=== PATIENT | female | born 1935 | race Caucasian/White ===

== ENCOUNTER 2020-03-12 08:09 | Inpatient (IN) | payer MEDICARE ==
[~2020-03-12] VITALS: Ht 160 cm; Wt 57.0 kg
[2020-03-12 10:09] LABS: BASOPHILS ABSOLUTE AUTO 0.03 K/mm3 (0.00-0.23); BASOPHILS PERCENT AUTO 0 % (0-2); EOSINOPHILS ABSOLUTE AUTO 0.04 K/mm3 (0.00-0.68); EOSINOPHILS PERCENT AUTO 0 % (0-6); Hematocrit 46.4 % (33.0-51.0); Hemoglobin 15.4 g/dL (11.5-16.0); IMMATURE GRAN ABSOLUTE AUTO 0.03 K/mm3 (0.00-0.10); IMMATURE GRAN PERCENT AUTO 0 % (0-1); LYMPHOCYTES ABSOLUTE AUTO 1.05 K/mm3 (0.84-5.20); LYMPHOCYTES PERCENT AUTO 11 % (21-46); MONOCYTES ABSOLUTE AUTO 0.56 K/mm3 (0.16-1.47); MONOCYTES PERCENT AUTO 6 % (4-13); Mean Corpuscular HGB 30.3 pg (26.0-34.0); Mean Corpuscular HGB Conc 33.2 g/dL (31.5-36.5); Mean Corpuscular Volume 91 fL (80-100); Mean Platelet Volume 10.3 fL (9.1-12.4); NEUTROPHILS ABSOLUTE AUTO 8.04 K/mm3 (1.96-9.15); NEUTROPHILS PERCENT AUTO 83 % (41-73); Platelet Count 225 K/mm3 (150-400); RDW Coefficient Variation 14.1 % (11.7-14.2); RDW Standard Deviation 47.3 fL (35.1-46.3); Red Blood Cell Count 5.09 M/mm3 (3.80-5.20); White Blood Cell Count 9.75 K/mm3 (4.00-11.30)
[2020-03-12 10:26] LABS: Alanine Aminotransfer (ALT/SGP 48 U/L (12-78); Albumin, Blood 3.2 g/dL (3.4-5.0); Albumin/Globulin Ratio 0.7 (0.8-1.8); Alk Phos 95 U/L (50-136); Anion Gap 7 mmol/L (6-16); Aspartate Aminotrans (AST/SGOT 90 U/L (12-37); Bilirubin, Total 0.9 mg/dL (0.1-1.0); Blood Urea Nitrogen 26 mg/dL (8-24); Bun/Creatinine Ratio 42.1 (12.0-20.0); CO2, Blood 25 mmol/L (21-32); Calcium, Blood 9.8 mg/dL (8.5-10.1); Chloride, Blood 112 mmol/L (98-108); Creatinine, Blood 0.62 mg/dL (0.40-1.00); Globulin, Blood 4.8 g/dL (2.2-4.0); Glomerular Filtration Rate >60 (60-); Glucose, Blood 119 mg/dL (70-99); Potassium, Blood 3.6 mmol/L (3.5-5.5); Sodium, Blood 144 mmol/L (136-145)
[2020-03-12 10:35] LABS: CPK Creatine Kinase 1932 U/L (26-193)
[2020-03-12 11:00] LABS: Creatine Kinase MB 25.4 ng/mL (0.0-3.6); Creatine Kinase MB Index 1.3 (0.0-4.0)
[2020-03-12 13:01] LABS: International Normalized Ratio 1.04; Prothrombin Time Results 11.1 Sec (9.7-11.5)
--- NOTE | 2020-03-12 15:33 | NUR ---
APS NOTIFICATION PT ARRIVED TO UNIT AT APROX 1345 FROM ER FOR A BROKEN FEMUR FOLLOWING A FALL AT HOME. PT APPEARS DIRTY/DISHEVELED, SMELLING STRONLY OF URINE AND BODY ODOR. IT WAS REPORTED TO THIS RN THAT PT FELL AT HOME TWO DAYS AGO AND LAID THERE PT'S WAS UNABLE TO LIFT HER OFF OF THE FLOOR. THIS RN NOTIFIED APS AT APROX 1515-SPOKE WITH [employer] SCREENER.
--- NOTE | 2020-03-12 19:37 | NUR ---
REPORT BEEN GIVEN TO HS RN. DR KEE HERE. SHOWN PT'S WOUNDS.
--- NOTE | 2020-03-13 04:39 | NUR ---
SHIFT SUMMARY: PT PLEASANT AND COOPERATIVE WITH CARE. PT NOTED TO BE SLIGHTLY CONFUSED DURING NIGHT- ASKING WHERE SHE IS SUPPOSED TO SLEEP. POINTING TOWARDS THE DOOR ASKING IF THERE IS A [place]. PT ABLE TO REORIENT EASILY. REPORTS DISCOMFORT BUT REFUSED TO TAKE ANY MEDICATION. WOUNDS ON R HIP AND LEFT ANKLE CULTURED AND SENT TO LAB. PT REPORTS HAVING THE LEFT ANKLE WOUND FOR A LONG TIME. HYDROGEL APPLIED AND SITE WRAPPED IN KERLEX+HAROON WRAP. SKIN TEAR/PRESSURE SORES TO RIGHT HIP COVERED WITH MEPILEX DRESSING. PT REPORTS THE WOUNDS TO RT HIP ARE NEW FROM LAYING ON RT SIDE FOR 2 DAYS D/T RECENT FALL AND FEMUR FX. SKIN ABNORMALITIES NOTED TO LEFT UPPER ARM UPPER BACK AND NOSE. 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 WESTON INTACT AND DRAINING SMALL AMOUNT OF URINE. 300CC OF DARK URINE EMPTIED. PLAN TO TREAT VARIOUS WOUNDS WITH IV ABX THEN POSS MARGAUX HIP.
[2020-03-13 05:31] LABS: BASOPHILS ABSOLUTE AUTO 0.02 K/mm3 (0.00-0.23); BASOPHILS PERCENT AUTO 0 % (0-2); EOSINOPHILS ABSOLUTE AUTO 0.02 K/mm3 (0.00-0.68); EOSINOPHILS PERCENT AUTO 0 % (0-6); Hematocrit 39.9 % (33.0-51.0); Hemoglobin 13.3 g/dL (11.5-16.0); IMMATURE GRAN ABSOLUTE AUTO 0.03 K/mm3 (0.00-0.10); IMMATURE GRAN PERCENT AUTO 0 % (0-1); LYMPHOCYTES ABSOLUTE AUTO 0.87 K/mm3 (0.84-5.20); LYMPHOCYTES PERCENT AUTO 9 % (21-46); MONOCYTES ABSOLUTE AUTO 0.55 K/mm3 (0.16-1.47); MONOCYTES PERCENT AUTO 6 % (4-13); Mean Corpuscular HGB 30.1 pg (26.0-34.0); Mean Corpuscular HGB Conc 33.3 g/dL (31.5-36.5); Mean Corpuscular Volume 90 fL (80-100); Mean Platelet Volume 9.8 fL (9.1-12.4); NEUTROPHILS ABSOLUTE AUTO 7.88 K/mm3 (1.96-9.15); NEUTROPHILS PERCENT AUTO 84 % (41-73); Platelet Count 187 K/mm3 (150-400); RDW Coefficient Variation 14.4 % (11.7-14.2); RDW Standard Deviation 47.6 fL (35.1-46.3); Red Blood Cell Count 4.42 M/mm3 (3.80-5.20); White Blood Cell Count 9.37 K/mm3 (4.00-11.30)
[2020-03-13 05:49] LABS: Anion Gap 7 mmol/L (6-16); Blood Urea Nitrogen 20 mg/dL (8-24); Bun/Creatinine Ratio 32.2 (12.0-20.0); CO2, Blood 22 mmol/L (21-32); CPK Creatine Kinase 889 U/L (26-193); Calcium, Blood 8.9 mg/dL (8.5-10.1); Chloride, Blood 114 mmol/L (98-108); Creatinine, Blood 0.62 mg/dL (0.40-1.00); Glomerular Filtration Rate >60 (60-); Glucose, Blood 119 mg/dL (70-99); Phosphorus, Blood 1.9 mg/dL (2.5-4.9); Sodium, Blood 143 mmol/L (136-145)
--- NOTE | 2020-03-13 17:58 | NUR ---
SHIFT SUMMARY PT HAS BEEN PLEASANT T/O SHIFT. SLIGHTLY FORGETFUL WHEN FIRST WAKING UP FROM [facility]APS. PAIN WELL MANAGED. REPOSTIONED Q2-3 HOURS. WOUND CARE COMPLETED MIDDAY. GOOD URINE OUTPUT & IVF INFUSING.
--- NOTE | 2020-03-14 05:08 | NUR ---
SHIFT SUMMARY LYING IN SEMI FOWLERS WITH EYES CLOSED. AAO X4, KING, FOLLOWS ALL COMMANDS. HAS BEEN VERY PLEASANT AND COOPERATIVE THROUGHOUT SHIFT. NO SIGNIFICANT CHANGES SINCE START OF SHIFT. REFUSED OFFER OF PAIN MEDS EACH TIME DENYING PAIN. IV ACCESS REMAINS PATNENT. ENJOYED DINNER WHILE TALKING ON PHONE WITH SON. DRESSINGS TO WOUNDS INTACT. DENIES FURTHER NEEDS OR WANTS AT THIS TIME. SAFETY MEASURES IN PLACE. WILL GIVE HAND OFF TO ONCOMING SHIFT USING SBAR.
[2020-03-14 05:22] LABS: Anion Gap 7 mmol/L (6-16); Blood Urea Nitrogen 18 mg/dL (8-24); Bun/Creatinine Ratio 31.1 (12.0-20.0); CO2, Blood 22 mmol/L (21-32); Calcium, Blood 8.5 mg/dL (8.5-10.1); Chloride, Blood 116 mmol/L (98-108); Creatinine, Blood 0.58 mg/dL (0.40-1.00); Glomerular Filtration Rate >60 (60-); Glucose, Blood 109 mg/dL (70-99); Potassium, Blood 3.3 mmol/L (3.5-5.5); Sodium, Blood 145 mmol/L (136-145)
[2020-03-14] MEDS ORDERED: ASCO500 PO (10:55)
[2020-03-14] MEDS ORDERED: ZINC15 PO (10:57)
[2020-03-14] MEDS ORDERED: MAGNESIUM BISG500 GM PO (10:57)
[2020-03-14] MEDS ORDERED: MULVITA PO (10:58)
[2020-03-14] MEDS ORDERED: VITAMIN D310 MC4 PO (10:59)
[2020-03-14] MEDS ORDERED: TURMERIC500 M2 PO (11:03)
[2020-03-14] MEDS ORDERED: OLIVE LEAF EXT250 MG PO (11:04)
[2020-03-14] MEDS ORDERED: B COMPLEX FORM0.4 MG PO (11:05)
--- NOTE | 2020-03-14 18:39 | NUR ---
SHIFT SUMMARY PT WAS UNABLE TO HAVE SURGERY TODAY R/T POSSIBLE INFECTION TO HER L ANKLE AND OPEN WOUNDS TO R HIP. PT IS GETTING ABX FOR WOUNDS. AWAITING WOUND CX RESULTS. DR. LOZADA CONSULTED ON PT TODAY. PT HAS REQUIRED ASSISTANCE WITH REPOSITIONING. PAIN HAS BEEN MANAGED WITH TYLENOL. VSS. WILL MONITOR UNTIL REPORT TO ONCOMING RN
[2020-03-15 05:28] LABS: Anion Gap 6 mmol/L (6-16); Blood Urea Nitrogen 16 mg/dL (8-24); Bun/Creatinine Ratio 26.4 (12.0-20.0); CO2, Blood 23 mmol/L (21-32); Calcium, Blood 8.6 mg/dL (8.5-10.1); Chloride, Blood 115 mmol/L (98-108); Creatinine, Blood 0.61 mg/dL (0.40-1.00); Glomerular Filtration Rate >60 (60-); Glucose, Blood 91 mg/dL (70-99); Potassium, Blood 3.3 mmol/L (3.5-5.5); Sodium, Blood 144 mmol/L (136-145)
--- NOTE | 2020-03-15 05:58 | NUR ---
SHIFT SUMMARY LYING IN SEMI FOWLERS WITH EYES CLOSED. AAO X4, KING, FOLLOWS ALL COMMANDS. HAS BEEN PLEASANT AND COOPERATIVE. NO SIGNIFICANT CHANGES SINCE START OF SHIFT. ACCEPTED ULTRAM AFTER RETURNNG FROM MRI ALONG WITH HS MEDS. IV ACCESS REMAINS PATNENT. DRESSINGS TO WOUNDS INTACT. DENIES FURTHER NEEDS OR WANTS AT THIS TIME SAFETY MEASURES IN PLACE. WILL GIVE HAND OFF TO ONCOMING SHIFT USING SBAR.
[2020-03-15 14:50] LABS: Influenza A, PCR Negative (NEGATIVE); Influenza B, PCR Negative (NEGATIVE); Resp Syncytial Virus, PCR Negative (NEGATIVE); SARS-Cov-2 (COVID-19) PCR, MMC Negative (NEGATIVE)
--- NOTE | 2020-03-15 19:22 | NUR ---
SHIFT SUMMARY PLAN FOR SURGERY TOMORROW TO REPAIR L HIP WITH DR. LOZADA. PAIN MANAGED WITH TYLENOL. PT TOLERATES REPOSITIONING WITH INSTRUCTION AND ASSISTANCE. VSS. REPORT GIVEN TO AJITH CHING.
--- NOTE | 2020-03-16 06:25 | NUR ---
PT TO SURGERY AT THIS TIME.
--- NOTE | 2020-03-16 19:42 | NUR ---
SHIFT SUMMARY PT A&OX4, VSS, S/P L MARGAUX HIP, AQUACEL CDI, DENIES N&T, WIGGLES TOES/MOVES FEET. DENIES PAIN. MORGAN PO, DENIES N&V. WESTON PATENT & DRAINING YELLOW URINE, OFF FLOOR. REPORT GIVEN TO HUNTER CHING.
--- NOTE | 2020-03-17 04:22 | NUR ---
SHIFT SUMMARY PT A/O X4; FORGETFUL AT TIMES. S/P L MARGAUX HIP ON 03/16. PAIN MANAGED WITH TYLENOL PER ORDERS. PT HAS BEEN REPOSITIONED MULT TIMES DURING THE SHIFT. BEDBATH GIVEN DURING THE NIGHT AND DRESSINGS TO BOTH HEELS, L ARM, AND R HIP CLEANED AND CHANGED. WESTON PATENT WITH STAT LOCK IN PLACE OVERNIGHT. PT HAS HAD LOW URINE OUTPUT; PO INTAKE AND FLUIDS ENCOURAGED. PT ALSO HAS HAD ELEVATED TEMP OCC DURING THE SHIFT; ENC. DEEP BREATHING & COUGHING. PT RESTING WITH CALL LIGHT IN REACH AT THIS TIME.
[2020-03-17 04:40] LABS: BASOPHILS ABSOLUTE AUTO 0.03 K/mm3 (0.00-0.23); BASOPHILS PERCENT AUTO 0 % (0-2); EOSINOPHILS PERCENT AUTO 1 % (0-6); Hematocrit 31.6 % (33.0-51.0); Hemoglobin 10.6 g/dL (11.5-16.0); IMMATURE GRAN ABSOLUTE AUTO 0.03 K/mm3 (0.00-0.10); IMMATURE GRAN PERCENT AUTO 0 % (0-1); LYMPHOCYTES PERCENT AUTO 13 % (21-46); MONOCYTES ABSOLUTE AUTO 0.81 K/mm3 (0.16-1.47); MONOCYTES PERCENT AUTO 8 % (4-13); Mean Corpuscular HGB 30.5 pg (26.0-34.0); Mean Corpuscular HGB Conc 33.5 g/dL (31.5-36.5); Mean Corpuscular Volume 91 fL (80-100); Mean Platelet Volume 9.6 fL (9.1-12.4); NEUTROPHILS ABSOLUTE AUTO 7.59 K/mm3 (1.96-9.15); NEUTROPHILS PERCENT AUTO 77 % (41-73); Platelet Count 145 K/mm3 (150-400); RDW Coefficient Variation 14.3 % (11.7-14.2); Red Blood Cell Count 3.47 M/mm3 (3.80-5.20); White Blood Cell Count 9.86 K/mm3 (4.00-11.30)
[2020-03-17 05:00] LABS: Alanine Aminotransfer (ALT/SGP 11 U/L (12-78); Albumin, Blood 2.1 g/dL (3.4-5.0); Albumin/Globulin Ratio 0.6 (0.8-1.8); Alk Phos 67 U/L (50-136); Anion Gap 4 mmol/L (6-16); Aspartate Aminotrans (AST/SGOT 24 U/L (12-37); Bilirubin, Total 0.4 mg/dL (0.1-1.0); Blood Urea Nitrogen 25 mg/dL (8-24); Bun/Creatinine Ratio 39.6 (12.0-20.0); CO2, Blood 28 mmol/L (21-32); Chloride, Blood 110 mmol/L (98-108); Creatinine, Blood 0.63 mg/dL (0.40-1.00); Globulin, Blood 3.6 g/dL (2.2-4.0); Glomerular Filtration Rate >60 (60-); Glucose, Blood 140 mg/dL (70-99); Potassium, Blood 4.4 mmol/L (3.5-5.5); Sodium, Blood 142 mmol/L (136-145); Total Protein, Blood 5.7 g/dL (6.4-8.2)
[2020-03-17 05:03] LABS: Percent Saturation 13.7 % (15.0-50.0)
--- NOTE | 2020-03-17 15:25 | NUR ---
SHIFT SUMMARY PT A&OX4, VSS, POD1 L MARGAUX HIP, AQUACEL CDI. PAIN MANAGED WITH ULTRAM AND TYLENOL. MORGAN PO, DENIES N&V. STAND/PIVOT OOB TO CHAIR; PT TOLERATED WELL. TCDB & I.S. EDU & ENC Q1H WHILE AWAKE. WESTON PATENT & DRAINING YELLOW URINE, STAT LOCK ON, OFF FLOOR. WILL REPORT TO ONCOMING AJITH CHING.
--- NOTE | 2020-03-18 01:09 | NUR ---
ASSUMED CARE AT 1900. PT A/O X4. DURING SHIFT ASSESSMENT, PT CLEARLY REQUESTED TO NOT BE WOKEN UP DURING THE NIGHT, STATING THAT SHE HAS NOT BEEN ABLE TO SLEEP AND WANTS TO BE LEFT ALONE. DISCUSSED REPOSITIONING; PT STILL DID NOT WANT TO BE WOKEN UP. DISCUSSED MEDICATIONS, VS, AND LABS; PT AGREEABLE TO BE WOKEN UP BETWEEN [id number] FOR MORNING MEDS, VS, AND LABS. PT HAS BEEN RESTING IN BED WITH CALL LIGHT IN PLACE. STAFF CHECKING IN ON PT PERIODICALLY, BUT HAVE NOT WOKEN PT UP YET PER PT REQUEST.
--- NOTE | 2020-03-18 04:38 | NUR ---
SHIFT SUMMARY PT HAS BEEN A/O X4. PT STATED THAT SHE DID NOT WANT TO BE WOKEN DURING THE NIGHT. PER PT REQUEST, STAFF HAVE NOT WOKEN UP BUT HAVE BEEN ROUNDING PER PROTOCOL. SEE PREVIOUS NOTE. PT APPEARS TO HAVE BEEN MOVING SELF SOMEWHAT IN BED. CALL LIGHT IN REACH OVERNIGHT. PT RESTING IN BED AT THIS TIME.
[2020-03-18 05:54] LABS: Hematocrit 30.3 % (33.0-51.0); Hemoglobin 10.2 g/dL (11.5-16.0); Mean Corpuscular HGB 30.9 pg (26.0-34.0); Mean Corpuscular HGB Conc 33.7 g/dL (31.5-36.5); Mean Corpuscular Volume 92 fL (80-100); Mean Platelet Volume 9.8 fL (9.1-12.4); Platelet Count 133 K/mm3 (150-400); RDW Coefficient Variation 14.4 % (11.7-14.2); RDW Standard Deviation 48.4 fL (35.1-46.3); White Blood Cell Count 7.39 K/mm3 (4.00-11.30)
[2020-03-18 06:15] LABS: Anion Gap 5 mmol/L (6-16); Blood Urea Nitrogen 20 mg/dL (8-24); Bun/Creatinine Ratio 31.6 (12.0-20.0); CO2, Blood 29 mmol/L (21-32); Calcium, Blood 9.1 mg/dL (8.5-10.1); Chloride, Blood 106 mmol/L (98-108); Creatinine, Blood 0.63 mg/dL (0.40-1.00); Glomerular Filtration Rate >60 (60-); Glucose, Blood 111 mg/dL (70-99); Potassium, Blood 3.8 mmol/L (3.5-5.5); Sodium, Blood 140 mmol/L (136-145)
--- NOTE | 2020-03-18 11:02 | NUR ---
THERAPY: OT IN ROOM TO WORK WITH PATIENT. PATIENT UP TO CHAIR WITH MOD ASSIST. PT REPORTS PAIN BUT DOES NOT WANT PRN MEDS EXCEPT TYLENOL. WILL CONT TO MONITOR PAIN.
--- NOTE | 2020-03-18 18:53 | NUR ---
pt has been stable this shift. pt worked with therapy and nursing to get oob and has been in the chair most of the day. pt has minimal complaints of pain, reports tylenol effective. pt started on bowel care and had a very large bm. pt logan dc'd this shift, no void yet. pull up on. wounds cleaned and dressings changed per orders. pt eats poorly. iv fluids at tko. plan for dc to snf.
--- NOTE | 2020-03-19 03:45 | NUR ---
PT WITH BLADDER SCAN THIS AM >400,PT ATTEMPT TO VOID.SLOWLY ABLE TO VOID 300 ML CRUZ.
--- NOTE | 2020-03-19 07:35 | NUR ---
SUMMARY PT AWAKE WITH NO C/O THIS AM.
[2020-03-19 15:38] LABS: Influenza A, PCR Negative (NEGATIVE); Influenza B, PCR Negative (NEGATIVE); Resp Syncytial Virus, PCR Negative (NEGATIVE); SARS-Cov-2 (COVID-19) PCR, MMC Negative (NEGATIVE)
--- NOTE | 2020-03-19 19:25 | NUR ---
SHIFT SUMMARY PT WILL REMAIN IN THE HOSPITAL OVERNIGHT R/T LOW GRADE TEMP OF 99.6 THIS AFTERNOON. PAIN MANAGED WITH TYLENOL THIS SHIFT. PT IS A 1 PERSON ASSIST FOR TRANSFERS. VSS. WILL MONITOR UNTIL REPORT TO ONCOMING RN.
--- NOTE | 2020-03-20 02:12 | NUR ---
REMOVED DRESSING TO LEFT HIP. CLEANED WITH SKINTEGRITY, APPLIED VASELINE NON-ADHERENT DRESSING. NO DRAINAGE, WOUND BED WITH GOOD COLOR. APPLIED KERLEX AND SECURED WITH HAROON WRAP. PT TOLERATED WELL. MEDICATED WITH TYLENOL, REPOSITIONED IN BED. CALL LIGHT IN REACH.
--- NOTE | 2020-03-20 04:11 | NUR ---
POD 4 S/P LEFT MARGAUX HIP. PT DID ACTUALLY QUITE WELL DURING NIGHT. PAIN WAS MINIMAL AT REST. DRESSING CHANGED TO LEFT ANKLE PER ORDER. LEFT HIP AQUACEL CDI. PT IS WILLING TO PARTICIPATE IN ADLS. IS A STAND AND TRANSFER WITH MAX ASSIST USING GAIT BELT AND 2 PEOPLE. WAS ABLE TO VOID WELL THIS SHIFT. PT IS CURRENTLY RESTING AND CALL LIGHT IN REACH. POSSIBLE DC TO SNF TODAY IF REMAINS AFEBRILE.
[2020-03-20 04:40] LABS: Hematocrit 28.5 % (33.0-51.0); Hemoglobin 9.3 g/dL (11.5-16.0); Mean Corpuscular HGB 30.5 pg (26.0-34.0); Mean Corpuscular HGB Conc 32.6 g/dL (31.5-36.5); Mean Corpuscular Volume 93 fL (80-100); Mean Platelet Volume 9.7 fL (9.1-12.4); Platelet Count 148 K/mm3 (150-400); RDW Coefficient Variation 14.2 % (11.7-14.2); RDW Standard Deviation 48.5 fL (35.1-46.3); Red Blood Cell Count 3.05 M/mm3 (3.80-5.20); White Blood Cell Count 5.84 K/mm3 (4.00-11.30)
--- NOTE | 2020-03-20 07:40 | NUR ---
pt awake lying in bed reports min pain if no movement but stated she still feels very weak in her legs
--- NOTE | 2020-03-20 09:15 | NUR ---
pt still working on eating her breakfast meds given as sched pt req applesauce to take them
--- NOTE | 2020-03-20 16:46 | NUR ---
pt waiting to go to [facility] no drainage to [facility] will send dressing to be changed on pod 7
--- NOTE | 2020-03-20 17:10 | NUR ---
[facility] escort to [facility] report called
== END 2020-03-20 17:04 | DRG 522 ==
LOC: ER 08:09 → EDBD 08:09 → SURS 12:37
PROVIDERS: Emergency Medicine; Internal Medicine; Nurse Practitioner Acute Care; Orthopaedic Surgery; ADMIT Internal Medicine
PROC: 0SRS0J9 Replacement of Left Hip Joint, Femoral Surface with Synthetic Substitute, Cemented, Open Approach (ICD-10-PCS; principal; 2020-03-16 06:30)
DX: S72.002A Fracture of unspecified part of neck of left femur, initial encounter for closed fracture (principal); E86.0 Dehydration; E87.6 Hypokalemia; F03.90 Unspecified dementia, unspecified severity, without behavioral disturbance, psychotic disturbance, mood disturbance, and anxiety; I10 Essential (primary) hypertension; J44.9 Chronic obstructive pulmonary disease, unspecified; W18.30XA Fall on same level, unspecified, initial encounter; Z86.14 Personal history of Methicillin resistant Staphylococcus aureus infection; K59.00 Constipation, unspecified; S71.101A Unspecified open wound, right thigh, initial encounter; S91.002A Unspecified open wound, left ankle, initial encounter; B95.61 Methicillin susceptible Staphylococcus aureus infection as the cause of diseases classified elsewhere; Z20.828 Contact with and (suspected) exposure to other viral communicable diseases
CPT/HCPCS: 0241U; 36415; 51702; 71045; 73502; 73552; 73600; 73723; 80048; 80053; 82550; 82553; 82728; 83540; 83550; 83735; 84100; 84550; 85025; 85027; 85610; 87070; 87075; 87076; 87077; 87186; 87205; 93005; 93010; 96360-59; 96361-59; 97110; 97161; 97166; 97530; 97535; 99285-25; A9270; A9270-GY; A9579; C1713; C1776; J0171; J0690; J1100; J2370; J2405; J2704; J3010; J3370; J7030; J7050